=== PATIENT | male | born 1990 | race African-American/Black ===

== ENCOUNTER 2017-12-17 12:36 | Emergency (ER) | payer SELFPAY ==
[~2017-12-17] VITALS: Ht 188 cm; Wt 115.7 kg
[2017-12-17 12:36] VITALS: BP 139/91
== END 2017-12-17 14:09 | disposition home or self-care (01) ==
LOC: ER 12:40
DX: S09.8XXA Other specified injuries of head, initial encounter (principal); M25.561 Pain in right knee; M25.512 Pain in left shoulder; J45.909 Unspecified asthma, uncomplicated; Z98.890 Other specified postprocedural states; Z60.2 Problems related to living alone; V49.49XA Driver injured in collision with other motor vehicles in traffic accident, initial encounter; Y93.89 Activity, other specified; Y92.413 State road as the place of occurrence of the external cause; Y99.8 Other external cause status
CPT/HCPCS: 73564-TC; A4606; Z7610